=== PATIENT | male | born 1965 | race Hispanic/Latino ===

== ENCOUNTER → 2017-06-17 | Outpatient (CLI) | payer BC ==
[~2017-06-17] MED LIST: ALIGN4 MG PO; ALLEGRA ALLERGY60 MG PO; AMITRIPTYLINE H25 MG PO; ASPIRIN81 MG PO; CLINDAMYCIN PHO60 ML; FLUTICASONE; HYDROXYZINE HCL25 MG PO; HYOSCYAMINE0.125 M2 PO; LEVAQUIN500 MG PO; METAMUCIL425 GM PO; MIRALAX17 GM PO; MONTELUKAST SOD10 MG PO; NORCO 10-325 T1 EACH PO; OMEPRAZOLE40 MG PO; SENNA S TABLET1 EACH PO; SINGULAIR10 MG PO; TEMAZEPAM30 MG PO
--- NOTE | 2017-06-17 19:11 | Diagnostic Imaging Report ---
Solid-phase gastric emptying study Reason for examination: 52 F with chronic nausea The protocol used for this study is based on the Consensus Recommendations for Gastric Scintigraphy by the [place] [employer] and the Society of Nuclear Medicine. Clinical information: The patient is not diabetic. The patient has not had previous gastrointestinal surgery other than cholecystectomy in 2013. The patient is not on any medications expected to affect gastric motility. The patient has been fasting for at least 6 hours prior to this exam. Radiopharmaceutical: Tc-99m sulfur colloid 1 mCi Report: The radiopharmaceutical was added to 1/2 cup egg whites that were then prepared and served with 2 pieces of white bread toasted, 30 grams of jam and 4 ounces of water. The patient took the meal orally without difficulty. Images were obtained of the abdomen in the anterior and posterior projections at 10 minutes post the meal and at 1and 2 hours. Uptake was determined from the geometric mean of the anterior and posterior counts and the counts were corrected for decay of the radiolabel. The percent gastric retention of the labeled meal at: 1 hour was 26% (normal 30-90%) 2 hours was 2% (normal <60%) 3-hour and 4-hour measurements were not obtained because the gastric retention was less than 10% at 2 hours. Impression: The pattern of gastric emptying is rapid. Scan findings do not support the clinical diagnosis of gastroparesis. Signed by: Dr. Angelic Arnold M.D. on 06/17/2017 7:07 PM
== END ==
LOC: NM 08:06
PROVIDERS: ATTEND Internal Medicine Gastroenterology
DX: R11.0 Nausea (principal)
CPT/HCPCS: 78264; A9541

== ENCOUNTER → 2019-04-07 | Day surgery (SDC) | payer BC ==
[~2019-04-07] MED LIST changes: +AMLODIPINE BESYL5 MG PO; +FENTANYL CITRATE/PF 100MCG/2 ML INJ ONE; +HYOSCYAMINE 0.125 MG TAB ONE; +LIDOCAINE HCL 2% LOCAL INJ 5 ML SDV VIAL INJ ONE; +MIDAZOLAM HCL 2 MG/2 ML VIAL ONE; +PROAIR HFA INH8.5 GM INH; +PROPOFOL IV EMULSION 10 MG/ML 50 ML VIAL ONE
--- OUTSIDE RECORDS SUMMARY | 2019-04-07 07:28 | XMS REPORT ---
Author Author [facility] Address Unknown Phone Unavailable Care Team Providers Care Garment Sorter Name Role Phone SULLY VALENCIA Unavailable Unavailable Problems This patient has no known problems. Allergies, Adverse Reactions, Alerts This patient has no known allergies or adverse reactions. Medications This patient has no known medications. Results Test Description Test Time Test Comments Text Results Atomic Results Result Comments GASTRIC EMPTYING [place] [address] Patient Name: NATO LOTT MR #: [id number] : 1965 Age/Sex: 52/M Req #: [id number] [facility] Physician: Ordered by: SULLY VALENCIA MD Report #: [id number] Location: [place] Room/Bed: Procedure: [id number] NM/GASTRIC EMPTYING Exam Date: 06/17/17 Exam Time: 0835 REPORT STATUS: Signed Solid-phase gastric emptying study Reason for examination: 52 F with chronic nausea The protocol used for this study is based on the Consensus Recommendations for Gastric Scintigraphy by the [place] [employer] and the Society of Nuclear Medicine. Clinical information: The patient is not diabetic. The patient has not had previous gastrointestinal surgery other than cholecystectomy in 2013. The patient is not on any medications expected to affect gastric motility. The patient has been fasting for at least 6 hours prior to this exam. Radiopharmaceutical: Tc-99m sulfur colloid 1 mCi Report: The radiopharmaceutical was added to 1/2 cup egg whites that were then prepared and served with 2 pieces of white bread toasted, 30 grams of jam and 4 ounces of water. The patient took the meal orally without difficulty. Images were obtained of the abdomen in the anterior and posterior projections at 10 minutes post the meal and at 1and 2 hours. Uptake was determined from the geometric mean of the anterior and posterior counts and the counts were corrected for decay of the radiolabel. The percent gastric retention of the labeled meal at: 1 hour was 26% (n ormal 30-90%) 2 hours was 2% (normal <60%) 3-hour and 4-hour measurements were not obtained because the gastric retention was less than 10% at 2 hours. Impression: The pattern of gastric emptying is rapid. Scan findings do not support the clinical diagnosis of gastroparesis. Signed by: Dr. Yodit Arnold M.D. on 06/17/2017 7:07 PM Dictated By: YODIT ARNOLD MD [facility] Signed By: YODIT ARNOLD MD on 06/17/171906 Transcribed By: ADRIEL on 06/17/171906 COPY TO: SULLY VALENCIA MD
[2019-04-07 10:25] VITALS: BP 131/85
--- NOTE | 2019-04-07 14:35 | Operative Report ---
DATE OF PROCEDURE: 04/07/2019 SURGEON: Redd Cordova MD PROCEDURES: EGD with biopsies and colonoscopy with fulguration and polypectomy. INDICATIONS FOR EGD: Dyspepsia. INDICATIONS FOR COLONOSCOPY: Colorectal cancer screening, father with colon cancer, personal history of colon polyps. MEDICATIONS: The patient was done under MAC, please see anesthesiologist's note. PROCEDURE IN DETAIL: With the patient in the left lateral decubitus position, the flexible fiberoptic Olympus gastroscope was introduced into the esophagus under direct visualization without any difficulty. There was some patchy erythema noted in distal esophagus. The scope was then advanced with ease into the stomach. Mucosa overlying the antrum and the body revealed some patchy erythema and [id number]-[id number] edema, and biopsies were obtained and sent to stain for H. pylori. The pylorus was of normal contour and shape, was intubated with ease and the scope was advanced all the way to the second portion of the duodenum. Biopsies were obtained from the proximal second portion and duodenal bulb to rule out sprue. The scope was then withdrawn back into the stomach and retroflexed, mucosa overlying the fundus and the cardia appeared to be within normal limits. The scope was then straightened out, it was subsequently withdrawn, and the patient tolerated the procedure well. IMPRESSION: 1. Distal esophagitis, mild. 2. Gastritis, biopsied, biopsies sent to stain for Helicobacter pylori. 3. Rule out sprue. PLAN: Follow up histology. Increase omeprazole to 40 mg 1 p.o. before meals b.i.d. The patient was then turned around and after adequate lubrication of the anal canal, a flexible fiberoptic Olympus colonoscope was inserted into the rectum with ease and advanced all the way to the cecum. Prep overall was suboptimal to poor with [id number] amount of retained fecal material in the colon. The scope was then withdrawn slowly and whatever was visualized the mucosa overlying the cecum appeared to be within normal limits. There was a minute AVM noted in the proximal ascending colon that was intermittently bleeding and that was fulgurated with a size 10 Gold probe with excellent hemostasis documented. One polyp was hot biopsied from the distal ascending colon. The transverse colon whatever was visualized the mucosa appeared to be within normal limits. One polyp was hot biopsied from the proximal descending colon. Other than for diverticulosis whatever was visualized, the descending and the sigmoid appeared to be within normal limits. The scope was then retroflexed into the distal rectum and the area around the dentate line appeared to be within normal limits. The scope was then straightened out, it was subsequently withdrawn, and the patient tolerated the procedure well. IMPRESSION: 1. Poor prep. 2. Arteriovenous malformation, proximal ascending colon, intermittently oozing, fulgurated with size 10 Gold probe. 3. Ascending colon polyp, hot biopsied. 4. Descending colon polyp, hot biopsied. 5. Diverticulosis. PLAN: Follow up histology. The patient will need a repeat colonoscopy after a better prep. Redd Cordova MD [facility]/MODL /[id number] cc: Macho Pittman MD
== END | disposition home or self-care (01) ==
LOC: OR 07:23
PROVIDERS: ATTEND Internal Medicine Gastroenterology
DX: K55.21 Angiodysplasia of colon with hemorrhage (principal); K20.9 Esophagitis, unspecified; K29.70 Gastritis, unspecified, without bleeding; K63.5 Polyp of colon; K57.30 Diverticulosis of large intestine without perforation or abscess without bleeding; Z86.010 Personal history of colon polyps; K21.9 Gastro-esophageal reflux disease without esophagitis; I10 Essential (primary) hypertension; Z80.0 Family history of malignant neoplasm of digestive organs; D12.2 Benign neoplasm of ascending colon; Z01.810 Encounter for preprocedural cardiovascular examination
CPT/HCPCS: 43239; 45382; 45384; 93005; J2001; J2250; J2704; J3010; 44391; 45378

== ENCOUNTER → 2019-05-22 | Day surgery (SDC) | payer BC ==
[~2019-05-22] MED LIST changes: -LIDOCAINE HCL 2% LOCAL INJ 5 ML SDV VIAL INJ ONE
[2019-05-22 15:05] VITALS: BP 117/71
--- NOTE | 2019-05-22 19:56 | Operative Report ---
DATE OF PROCEDURE: 05/22/2019 SURGEON: Redd Cordova MD PROCEDURE: Colonoscopy with polypectomy. INDICATIONS FOR COLONOSCOPY: Poor prep on previous colonoscopy, personal history of colon polyps, father with colon cancer. MEDICATIONS: The patient was done under MAC, please see anesthesiologist's note. PROCEDURE IN DETAIL: With the patient in the left lateral decubitus position, a flexible fiberoptic Olympus colonoscope was inserted into the rectum with ease and advanced all the way to the cecum. Minute polyp was noted in the cecum that was removed per the cold biopsy forceps. Of note, diverticular disease was noted throughout the colon in the ascending, transverse, descending as well as the sigmoid colon. One polyp was noted in the sigmoid colon that was removed per cold biopsy forceps and one rectal polyp was hot biopsied. The scope was then retroflexed into the distal rectum and the area around the dentate line grossly appeared to be within normal limits. The scope was then straightened out, it was subsequently withdrawn, and the patient tolerated the procedure well. IMPRESSION: 1. Cecal polyp, removed per the cold biopsy forceps. 2. Pandiverticulosis. 3. Sigmoid colon polyp, hot biopsied. 4. Rectal polyp, hot biopsied. PLAN: Follow up histology. Initiate high-fiber, low-fat diet. Initiate high-fiber supplement. The patient might benefit from a followup colonoscopy in 3 years. Redd Cordova MD [facility]/MODL /[id number] cc: Macho Pittman MD
== END | disposition home or self-care (01) ==
LOC: OR 11:20
PROVIDERS: ATTEND Internal Medicine Gastroenterology
DX: Z12.11 Encounter for screening for malignant neoplasm of colon (principal); K57.30 Diverticulosis of large intestine without perforation or abscess without bleeding; J45.909 Unspecified asthma, uncomplicated; I10 Essential (primary) hypertension; K63.5 Polyp of colon; K62.1 Rectal polyp; Z86.010 Personal history of colon polyps; Z80.0 Family history of malignant neoplasm of digestive organs
CPT/HCPCS: 45378; 45384; J2250; J3010

== ENCOUNTER 2019-06-14 15:59 | Emergency (ER) | payer BC ==
[~2019-06-14] VITALS: Ht 167.6 cm; Wt 79.4 kg
[~2019-06-14 15:59] MED LIST changes: -FENTANYL CITRATE/PF 100MCG/2 ML INJ ONE; -HYOSCYAMINE 0.125 MG TAB ONE; -MIDAZOLAM HCL 2 MG/2 ML VIAL ONE; -PROPOFOL IV EMULSION 10 MG/ML 50 ML VIAL ONE
[2019-06-14 16:34] LABS: BASOPHILS % 0.2 % (0.0-1.0); EOSINOPHILS # (AUTO) 0.1 (0.0-0.4); EOSINOPHILS % 1.3 % (0.0-6.0); HEMATOCRIT 45.8 % (38.2-49.6); HEMOGLOBIN 15.5 g/dL (14.0-18.0); LYMPHOCYTES # (AUTO) 1.9 (1.0-3.2); LYMPHOCYTES % 37.2 % (18.0-39.1); MEAN CORPUSCULAR HEMOGLOBIN 30.9 pg (28-32); MEAN CORPUSCULAR HGB CONC 33.8 g/dL (31-35); MEAN CORPUSCULAR VOLUME 91.2 fL (81-99); MONOCYTES # (AUTO) 0.4 (0.2-0.8); MONOCYTES % 7.1 % (4.4-11.3); NEUTROPHILS # (AUTO) 2.8 (2.1-6.9); PLATELET COUNT 204 x10e3/uL (140-360); RED BLOOD COUNT 5.02 x10e6/uL (4.3-5.7); RED CELL DISTRIBUTION WIDTH 12.4 % (11.7-14.4)
[2019-06-14] MEDS ORDERED: KETOROLAC TROMETHAMINE 30 MG/ML VIAL IV STA (16:41)
[2019-06-14 16:44] LABS: INR 0.92; PROTHROMBIN TIME 12.9 seconds (11.9-14.5)
[2019-06-14 16:45] LABS: PARTIAL THROMBOPLASTIN TIME 27.9 seconds (23.8-35.5)
[2019-06-14 16:52] LABS: ALANINE AMINOTRANSFERASE 25 IU/L (0-55); ALBUMIN 4.3 g/dL (3.5-5.0); ALBUMIN/GLOBULIN RATIO 1.5 (0.8-2.0); ALKALINE PHOSPHATASE 92 IU/L (40-150); ANION GAP 14.7 mmol/L (8-16); BLOOD UREA NITROGEN 10 mg/dL (7-26); BUN/CREATININE RATIO 12 (6-25); CALCIUM 8.7 mg/dL (8.4-10.2); CARBON DIOXIDE 25 mmol/L (22-29); CHLORIDE 103 mmol/L (98-107); CREATINE KINASE 87 IU/L (30-200); CREATININE, SERUM 0.82 mg/dL (0.72-1.25); EST GLOMERULAR FILTRATION RATE > 60 ML/MIN (60-); GLUCOSE 110 mg/dL (74-118); POTASSIUM 3.7 mmol/L (3.5-5.1); SODIUM 139 mmol/L (136-145)
--- NOTE | 2019-06-14 18:19 | Diagnostic Imaging Report ---
EXAMINATION: CHEST SINGLE (PORTABLE) INDICATION: ^CHEST PAIN ^[id number] ^[id number] COMPARISON: Chest radiograph 02/10/2013 FINDINGS: AP view TUBES and LINES: None. LUNGS: Lungs are well inflated. Small airspace opacity in the left lower lobe. No pulmonary edema. PLEURA: No pleural effusion or pneumothorax. HEART AND MEDIASTINUM: The cardiomediastinal silhouette is unremarkable. Mildly tortuous thoracic aorta. BONES AND SOFT TISSUES: No acute osseous lesion. Unchanged mild elevation of the right hemidiaphragm. UPPER ABDOMEN: No free air under the diaphragm. IMPRESSION: Indeterminate small airspace opacity in the left lower lobe may reflect small pneumonia versus scarring, not present on 02/10/2013. Recommend follow-up chest radiograph in 4 weeks. Signed by: Dr. Kelly Grant M.D. on 06/14/2019 6:15 PM
--- NOTE | 2019-06-14 18:57 | NUR ---
report given to Ren FINN
[2019-06-14 20:26] VITALS: BP 134/90
== END 2019-06-14 20:39 | disposition home or self-care (01) ==
LOC: ER 15:59
DX: R07.89 Other chest pain (principal); I10 Essential (primary) hypertension
CPT/HCPCS: 36415; 71045; 80053; 82550; 82553; 84484; 85025; 85610; 85730; 93005; 99284; J1885

== ENCOUNTER → 2020-07-29 | Day surgery (SDC) | payer BC ==
[~2020-07-29] MED LIST changes: +BREO ELLIPTA 11 EACH INH; +FENTANYL CITRATE/PF 100MCG/2 ML INJ ONE; +GLUCAGON FOR INJ 1 MG VIAL ONE; +HYOSCYAMINE SULFATE 0.5 MG/ML INJ ONE; +LIDOCAINE HCL 2% LOCAL INJ 5 ML SDV VIAL INJ ONE; +MIDAZOLAM HCL 2 MG/2 ML VIAL ONE; +PROPOFOL IV EMULSION 10 MG/ML 20 ML VIAL ONE
[2020-07-29 09:20] VITALS: BP 130/86
== END | disposition home or self-care (01) ==
LOC: OR 06:14
PROVIDERS: ATTEND Internal Medicine Gastroenterology
DX: Z12.11 Encounter for screening for malignant neoplasm of colon (principal); K62.1 Rectal polyp; K29.70 Gastritis, unspecified, without bleeding; K57.30 Diverticulosis of large intestine without perforation or abscess without bleeding; K27.9 Peptic ulcer, site unspecified, unspecified as acute or chronic, without hemorrhage or perforation; K21.9 Gastro-esophageal reflux disease without esophagitis; K20.90 Esophagitis, unspecified without bleeding; K59.00 Constipation, unspecified; I10 Essential (primary) hypertension; F41.9 Anxiety disorder, unspecified; I49.3 Ventricular premature depolarization; J45.909 Unspecified asthma, uncomplicated; F32.9 Major depressive disorder, single episode, unspecified; Z01.812 Encounter for preprocedural laboratory examination; Z20.822 Contact with and (suspected) exposure to COVID-19; Z79.82 Long term (current) use of aspirin; Z86.16 Personal history of COVID-19; Z87.891 Personal history of nicotine dependence; Z80.0 Family history of malignant neoplasm of digestive organs
CPT/HCPCS: 43239; 45380; J1610; J1980; J2001; J2250; J2704; J3010; U0002; 45378